=== PATIENT | female | born 1985 | race Caucasian/White ===

== ENCOUNTER 2021-03-29 13:36 | Emergency (ER) | payer MEDICAID, SELFPAY ==
[2021-03-29 13:53] VITALS: BP 115/81; BP 138/88; PULSE 99; RESP 18; TEMP 36.1; O2SAT 110; O2SAT 98; BMI 30.4
--- NOTE | 2021-03-29 13:59 | ED.BACK ---
HPI - Back Pain/Injury General Chief Complaint: Back Pain/Injury Stated Complaint: lower back pain Time Seen by Provider: 03/29/21 13:58 History of Present Illness HPI Narrative: Patient is a 36-year-old female presented with having back pain. The pain is sharp radiates down both legs. Similar to previous bouts of back pain. Patient has a history using NSAIDs and CBD for back pains at home. Today the pain was unbearable. There is no new trauma. There is no bowel urinary incontinence. There is no focal weakness. Patient is from home. Pain is worse with movement. It is the same as previous. Related Data Previous Rx's Medication Instructions Recorded cyclobenzaprine 10 mg tablet 10 mg PO TID PRN #14 tab 03/29/21 ibuprofen 400 mg tablet 400 mg PO Q6H PRN #20 tab 03/29/21 Allergies Allergy/AdvReac Type Severity Reaction Status Date / Time No Known Allergies Allergy Unverified 02/02/20 17:12 Review of Systems Review of Systems: Positive back pain rating down both legs No focal weakness no bowel urinary incontinence All systems reviewed otherwise negative [facility] Past Medical History Attestation statement: The following information was validated with the patient. Social History Social History Advance Directives: No Advance Directives Information Provided: No Patient : No Physical Exam Vital Signs: Vital Signs: Last Vital Signs Temp 96.9 F 03/29/21 13:53 Pulse 99 03/29/21 13:53 Resp 18 03/29/21 13:53 BP 115/81 03/29/21 13:53 Pulse Ox 98 03/29/21 13:53 Body Mass Index 30.4 Appearance: Alert. Oriented X3. No acute distress. Eyes: Pupils equal, round and reactive to light. ENT: Pharynx normal. Neck: Normal inspection. Neck supple. No lymph nodes noted. No crepitus CVS: Normal heart rate and rhythm. Pulses normal. Normal S1 and S2 Respiratory: No respiratory distress. Breath sounds normal. No Wheezing. No rales Abdomen: Soft and nontender. No rigidity. No distention. good BS x4 Skin: Skin warm and dry. Normal skin color. Normal skin turgor. Positive paraspinal muscle tenderness in the lower back. There is no spinal tenderness elicited on palpation. Extremities: No lower extremity edema. Neurovascular intact to all extremities. No Lacerations. No Rash. Sensation bilateral lower extremity intact. Negative straight leg raise test.reflex 2+ at patella bilaterally Neuro: Oriented X 3. No motor deficit. No sensory deficit. Moving all extermities. No slurred speech MDM - Back Pain/Injury MDM Narrative Medical decision making narrative: No bowel urinary incontinence. No distress. No focal weakness. No evidence for cauda equina. Patient is getting a ride home. give Motrin and muscle relaxant for outpatient care. Currently in stable condition. Medical Records Attestation: I reviewed the patient's medical records. Lab Data Attestation: I reviewed the patient's lab results. Discharge Plan Discharge Clinical Impression: Strain of lumbar region Patient Disposition: Home, Self-Care Instructions: Acute Low Back Pain (ED), Back Pain (ED) Prescriptions: New cyclobenzaprine 10 mg tablet 10 mg PO TID PRN (Reason: pain) Qty: 14 RF: 0 ibuprofen 400 mg tablet 400 mg PO Q6H PRN (Reason: pain) Qty: 20 RF: 0 Referrals: Eddie Covarrubias, [facility] [Primary Care Provider] - 2 days
[2021-03-29] MEDS: LORazepam 2 MG/ML VIAL 0.5 MG IVPUSH (14:25)
[2021-03-29] MEDS: Ketorolac Tromethamine 15 MG/ML VIAL IVPUSH (14:26)
[2021-03-29] MEDS: HYDROmorphone HCl 0.5 MG/0.5 ML SYRINGE IVPUSH ×2 (14:27→15:55)
[2021-03-29 15:26] VITALS: BP 124/63; PULSE 92; RESP 20; TEMP 36.6; O2SAT 99
--- NOTE | 2021-03-29 17:43 | MHC.CM.ED ---
CM spoke with discharged patient at request of Viviana FARNSWORTH. Pt had concerns with nurse about discharge home. CM met with pt and listened to her concerns about her back pain. Elicited treatments that patient currently uses for her chronic back pain , which include CBD chocolate, Lidocaine patch and Medical Cannibis. Encouraged patient to follow MD instructions for ice/heat/motrin and muscle relaxant, which is new for her. Explained that she should f/u with her PCP and maybe consider patient care technician, which could help her back pain. Explained that her PCP could refer her if her pain is not relieved by the above measures. Pt is agreeable and will call for a ride home. Viviana FARNSWORTH aware of above.
--- NOTE | 2021-03-29 17:45 | PC.NURSE ---
patient discharged but refusing to leave. States back pain is not resolved. MD ordered more pain medication and prescriptions to pickler helper from pharmacy. Patient now refusing to leave because she would like to go to a long term rehab facility. Patient states she can't walk. Offered patient assistance to ambulate. Patient ambulated well. Patient refusing to be discharged still and requesting a cane. A cane was provided to patient. Patient educated on use of cane and states she can tolerate using this at home. Patient still refusing discharge as she does not have a ride home. patient given options to receive rides home from hospital. Patient stated she will call family and friends. Patient refusing to wait in waiting room and is waiting on stretcher and will let information writer know when she is ready to be discharged.
== END 2021-03-29 18:01 | disposition home or self-care (01) ==
PROVIDERS: Emergency Provider Emergency Medicine Emergency Medical Services; PCP Nurse Practitioner Primary Care
DX: S39.012A Strain of muscle, fascia and tendon of lower back, initial encounter (principal); X58.XXXA Exposure to other specified factors, initial encounter; Y93.9 Activity, unspecified; Y92.9 Unspecified place or not applicable; Y99.9 Unspecified external cause status
CPT/HCPCS: 96374; 96375; 96376; 99283; 99284; J1170; J1885; J2060